=== PATIENT | male | born 1990 | race Caucasian/White ===

== ENCOUNTER 2022-04-16 13:20 | Outpatient (CLI) | payer OTHER, SELFPAY ==
[2022-04-16 18:51] LABS: Basophils Absolute Auto 0.1 K/mm3 (0.0-0.1); Basophils Percent Auto 0.6 % (0.2-1.2); Eosinophils Absolute Auto 0.1 K/mm3 (0-0.3); Eosinophils Percent Auto 1.3 % (0-4.4); Hematocrit 38.1 % (42.0-52.0); Hemoglobin 12.7 g/dL (14.0-18.0); Immature Granulocyte Absolute 0.05 K/mm3 (0.00-0.031); Immature Granulocyte Percent A 0.5 % (0-0.5); Lymphocytes Absolute Auto 2.39 K/mm3 (0.9-3.2); Lymphocytes Percent Auto 24.5 % (18.3-44.2); Mean Corpuscular HGB Conc 33.3 g/dl (32-36); Mean Corpuscular Hemoglobin 30.2 pg (26-34); Mean Corpuscular Volume 90.7 fl (80-100); Mean Platelet Volume 10.9 fl (7.4-10.4); Monocytes Absolute Auto 0.6 K/mm3 (0.1-0.6); Monocytes Percent Auto 5.9 % (2.6-8.5); Neutrophils Absolute Auto 6.5 K/mm3 (1.3-6.7); Neutrophils Percent Auto 67.2 % (45.5-73.1); Platelet Count Result 284 k/mm3 (150-375); Red Cell Distribution Width 11.7 % (11.5-14.5); White Blood Count 9.8 K/mm3 (4.5-10.0)
[2022-04-16 19:21] LABS: Alanine Aminotransferase 17 U/L (6-50); Albumin Level 4.1 g/dL (3.5-5.1); Alkaline Phosphatase 57 U/L (38-126); Anion Gap 6 mmol/L (8-16); Aspartate Amino Transferase 18 U/L (17-59); Bilirubin,Total 0.3 mg/dL (0.2-1.3); Blood Urea Nitrogen 12 mg/dL (9-20); Calcium 8.7 mg/dL (8.4-10.2); Carbon Dioxide 28 mmol/L (22-30); Chloride 104 mmol/L (98-107); Cholesterol 200 mg/dL (0-200); Estimated Glomerular Filt Rate > 60; Glucose 99 mg/dL (65-110); HDL Direct 47 mg/dL; Potassium 4.7 mmol/L (3.4-5.0); Sodium 138 mmol/L (137-145); Triglycerides 157 mg/dL (<150)
[2022-04-16 19:32] LABS: LDL Cholesterol Direct 102 mg/dL
[2022-04-17 16:56] LABS: Folic Acid 7.3 ng/mL (2.76->20)
== END 2022-04-16 13:21 | disposition home or self-care (01) ==
LOC: ANHGOSHLAB 13:21
PROVIDERS: PCP Internal Medicine; Visit Provider Nurse Practitioner
DX: Z13.220 Encounter for screening for lipoid disorders (principal); G47.19 Other hypersomnia
CPT/HCPCS: 36415; 80053; 80061; 82607; 82746; 84443; 85025

== ENCOUNTER 2022-04-22 14:07 | Outpatient (CLI) | payer OTHER, SELFPAY ==
[2022-04-22 19:04] LABS: Basophils Absolute Auto 0.1 K/mm3 (0.0-0.1); Basophils Percent Auto 0.7 % (0.2-1.2); Eosinophils Absolute Auto 0.2 K/mm3 (0-0.3); Eosinophils Percent Auto 2.3 % (0-4.4); Hematocrit 39.6 % (42.0-52.0); Hemoglobin 13.3 g/dL (14.0-18.0); Immature Granulocyte Absolute 0.03 K/mm3 (0.00-0.031); Immature Granulocyte Percent A 0.3 % (0-0.5); Lymphocytes Absolute Auto 2.28 K/mm3 (0.9-3.2); Lymphocytes Percent Auto 24.8 % (18.3-44.2); Mean Corpuscular HGB Conc 33.6 g/dl (32-36); Mean Corpuscular Hemoglobin 30.7 pg (26-34); Mean Corpuscular Volume 91.5 fl (80-100); Mean Platelet Volume 11.1 fl (7.4-10.4); Monocytes Absolute Auto 0.5 K/mm3 (0.1-0.6); Monocytes Percent Auto 5.6 % (2.6-8.5); Neutrophils Absolute Auto 6.1 K/mm3 (1.3-6.7); Neutrophils Percent Auto 66.3 % (45.5-73.1); Platelet Count Result 293 k/mm3 (150-375); Red Blood Count 4.33 M/mm3 (4.6-6.20); Red Cell Distribution Width 11.7 % (11.5-14.5); White Blood Count 9.2 K/mm3 (4.5-10.0)
[2022-04-22 20:39] LABS: Iron 96 ug/dL (49-181)
[2022-04-22 20:48] LABS: Percent Iron Saturation 34 % (20-50)
[2022-04-22 21:54] LABS: Folic Acid 7.6 ng/mL (2.76->20)
[2022-04-24 09:44] LABS: Immature Reticulocyte Fraction 7.6 % (3.0-15.9); Reticulocyte Percent 1.29 % (0.7-4.3); Reticulocytes Absolute 0.06 B/L (32.2-175.7)
== END 2022-04-22 14:08 | disposition home or self-care (01) ==
LOC: ANHGOSHLAB 14:08
PROVIDERS: PCP Internal Medicine; Visit Provider Nurse Practitioner
DX: D64.9 Anemia, unspecified (principal)
CPT/HCPCS: 36415; 82607; 82728; 82746; 83540; 83550; 85025; 85046

== ENCOUNTER 2022-09-23 16:39 | Outpatient (CLI) | payer OTHER, SELFPAY ==
--- NOTE | ~2022-09-23 | US_ITS ---
EXAMINATION: US thyroid DATE: 09/23/2022 17:07 INDICATION: Fatigue. Enlarged thyroid. TECHNIQUE: Multiple ultrasound images of the thyroid were obtained. COMPARISON: None. FINDINGS: The right thyroid lobe measures 4.7 x 1.4 x 1.9 cm. The left thyroid lobe measures 5.0 x 1.6 x 1.9 c m. Thyroid isthmus measures 2-3 mm in thickness. 7 mm wider than tall solid nodule in the left thyroi d with smooth margins and without echogenic foci. (TI-RADS 4, moderately suspicious , FNA if >=1.5 cm , annual followup is >=1 cm). No other thyroid nodules identified. There is mildly coarsened echotext ure and mildly increased vascular flow throughout the thyroid. IMPRESSION: 1. 7 mm TI RADS 4 left thyroid nodule which remains below threshold for recommendation of either biop sy or follow-up. 2. Diffuse mildly worsened echotexture and mildly increased vascular flow throughout the thyroid whic h could be seen with thyroiditis. Reviewed, dictated and finalized at location B. IMPRESSION: 1. 7 mm TI RADS 4 left thyroid nodule which remains below threshold for recomme ndation of either biopsy or follow-up. 2. Diffuse mildly worsened echotexture and mildly increased vascular flow throu ghout the thyroid which could be seen with thyroiditis.
== END 2022-09-23 16:40 | disposition home or self-care (01) ==
PROVIDERS: PCP Nurse Practitioner Family; Visit Provider Nurse Practitioner Family
DX: R53.83 Other fatigue (principal); E01.0 Iodine-deficiency related diffuse (endemic) goiter
CPT/HCPCS: 76536